=== PATIENT | female | born 1955 | race Caucasian/White ===

== ENCOUNTER 2017-05-18 09:13 | Emergency (ER) | payer OTHER ==
[2017-05-18 09:18] VITALS: BMI 24.5
--- NOTE | 2017-05-18 09:26 | PDOC ---
History of Present Illness - General History Source: Patient Exam Limitations: No Limitations - History of Present Illness Initial Comments: 05/18/17 11:34 The patient is a 62 year old female with a significant PMH of rheumatic fever who presents to the emergency department with left sided rib pain and non- productive cough since yesterday. The patient describes the rib pain as localized on the left, pressure-like, and non-radiating. The patient states the pain is worsened with breathing. The patient denies any similar left sided rib pain in the past. The patient denies any history of kidney stones. The patient denies chest pain, shortness of breath, headache and dizziness. Denies fever, chills, nausea, vomit, diarrhea and constipation. Denies dysuria, frequency, urgency and hematuria. Allergies: NKA Past surgical history: None reported. Social history: Current smoker. No reported alcohol or drug use. <Dang Mckeon - Last Filed: 05/18/17 11:34> <Allison Stuart - Last Filed: 05/18/17 16:12> - General Chief Complaint: Pain Stated Complaint: ABD PAIN Time Seen by Provider: 05/18/17 09:26 Past History <Dang Mckeon - Last Filed: 05/18/17 11:34> - Past Medical History COPD: No Psychiatric Problems: Yes (DEPRESSION, ANXEITY) - Suicide/Smoking/Psychosocial Hx Smoking History: Current every day smoker Have you smoked in the past 12 months: Yes Number of Cigarettes Smoked Daily: 20 Information on smoking cessation initiated: Yes 'Breaking Loose' booklet given: 05/18/17 Hx Alcohol Use: No Drug/Substance Use Hx: No Substance Use Type: None <Allison Stuart - Last Filed: 05/18/17 16:12> - Past Medical History Allergies/Adverse Reactions: Allergies Allergy/AdvReac Type Severity Reaction Status Date / Time No Known Allergies Allergy Verified 05/18/17 09:15 Home Medications: Ambulatory Orders Unobtainable [Unobtainable] 05/18/17 Review of Systems - Review of Systems Able to Perform ROS?: Yes Comments:: 05/18/17 11:35 GENERAL/CONSTITUTIONAL: No fever or chills. No weakness. HEAD, EYES, EARS, NOSE AND THROAT: No change in vision. No ear pain or discharge. No sore throat. CARDIOVASCULAR: No chest pain or shortness of breath. RESPIRATORY: (+) Non-productive cough. No wheezing or hemoptysis. GASTROINTESTINAL: No nausea, vomiting, diarrhea or constipation. GENITOURINARY: No dysuria, frequency, or change in urination. MUSCULOSKELETAL: (+) Left sided rib pain. No joint or muscle swelling or pain. No neck or back pain. SKIN: No rash NEUROLOGIC: No headache, vertigo, loss of consciousness, or change in strength/ sensation. ENDOCRINE: No increased thirst. No abnormal weight change. HEMATOLOGIC/LYMPHATIC: No anemia, easy bleeding, or history of blood clots. ALLERGIC/IMMUNOLOGIC: No hives or skin allergy. <Dang Mckeon - Last Filed: 05/18/17 11:34> *Physical Exam - Vital Signs Last Vital Signs Temp Pulse Resp BP Pulse Ox 97.6 F 86 18 137/87 93 L 05/18/17 09:15 05/18/17 09:15 05/18/17 09:15 05/18/17 09:15 05/18/17 09:15 - Physical Exam Comments: 05/18/17 11:35 GENERAL: Awake, alert, and fully oriented, in no acute distress HEAD: No signs of trauma EYES: PERRLA, EOMI, sclera anicteric, conjunctiva clear ENT: Auricles normal inspection, hearing grossly normal, nares patent, oropharynx clear without exudates. Moist mucosa NECK: Normal ROM, supple, no lymphadenopathy, JVD, or masses LUNGS: Breath sounds equal, clear to auscultation bilaterally. No wheezes, and no crackles HEART: Regular rate and rhythm, normal S1 and S2, no murmurs, rubs or gallops ABDOMEN: (+) Left sided rib Soft, nontender, normoactive bowel sounds. No guarding, no rebound. No masses BACK: No CVA tenderness. EXTREMITIES: Normal range of motion, no edema. No clubbing or cyanosis. No cords, erythema, or tenderness NEUROLOGICAL: Cranial nerves II through XII grossly intact. Normal speech, normal gait SKIN: Warm, Dry, normal turgor, no rashes or lesions noted. <Dang Mckeon - Last Filed: 05/18/17 11:34> - Vital Signs Last Vital Signs Temp Pulse Resp BP Pulse Ox 97.6 F 86 18 137/87 93 L 05/18/17 09:15 05/18/17 09:15 05/18/17 09:15 05/18/17 09:15 05/18/17 09:15 <Allison Stuart - Last Filed: 05/18/17 16:12> ED Treatment Course - LABORATORY CBC & Chemistry Diagram: 05/18/17 10:11 05/18/17 10:11 - ADDITIONAL ORDERS Additional order review: Laboratory Results 05/18/17 05/18/17 10:20 10:11 Sodium 138 Potassium 3.3 L Chloride 105 Carbon Dioxide 25 Anion Gap 8 BUN 12 Creatinine 0.7 Creat Clearance w eGFR > 60 Random Glucose 78 Calcium 8.6 Total Bilirubin 0.2 AST 30 ALT 31 Alkaline Phosphatase 63 Total Protein 7.2 Albumin 3.5 Urine Color Ltyellow Urine Appearance Clear Urine pH 6.0 Ur Specific [place] 1.011 Urine Protein Negative Urine Glucose (UA) Negative Urine Ketones Negative Urine Blood 1+ H Urine Nitrite Negative Urine Bilirubin Negative Urine Urobilinogen Negative Ur Leukocyte Esterase Negative 05/18/17 10:11 RBC 4.56 MCV 99.2 H MCHC 32.7 RDW 13.4 MPV 9.3 Neutrophils % 53.8 Lymphocytes % 32.9 Monocytes % 12.4 H Eosinophils % 0.4 Basophils % 0.5 - Medications Given in the ED: ED Medications Discontinued Medications Generic Name Dose Route Start Last Admin Trade Name Freq PRN Reason Stop Dose Admin Ketorolac Tromethamine 30 mg 05/18/17 10:04 05/18/17 10:21 Toradol Injection - IVPUSH 05/18/17 10:05 30 mg ONCE ONE Administration <Dang Mckeon - Last Filed: 05/18/17 11:34> - LABORATORY CBC & Chemistry Diagram: 05/18/17 10:11 05/18/17 10:11 <Allison Stuart - Last Filed: 05/18/17 16:12> Medical Decision Making - Medical Decision Making 05/18/17 10:39 Pt presents to the ED complaining of non productive cough and L sided rib pain. Denies fevers, vomiting or urinary complaints. No CVA or abdominal tenderness. Differential includes PNA, costochondritis, unlikely PE or ACS. Renal stone is also on the differential, although less likely given the location of her pain. Will check non contrast CT if UA shows hematuria. <Allison Stuart - Last Filed: 05/18/17 16:12> *DC/Admit/Observation/Transfer - Attestations Scribe Attestion: 05/18/17 11:35 Documentation prepared by Dang Mckeon, acting as director biomedical engineering for Allison Stuart MD. <Dang Mckeon - Last Filed: 05/18/17 11:34> - Discharge Dispostion Admit: No <Allison Stuart - Last Filed: 05/18/17 16:12> Diagnosis at time of Disposition: Back pain Qualifiers: Back pain location: thoracic back pain Chronicity: acute Back pain laterality: left Qualified Code(s): M54.6 - Pain in thoracic spine - Discharge Dispostion Disposition: HOME Condition at time of disposition: Good - Patient Instructions Printed Discharge Instructions: DI for Thoracic Back Pain Additional Instructions: return to the ED for fever, severe pain, pain with fever, other new or worsening symptoms. Make sure that you call your doctor for follow up on Saturday.
[2017-05-18] MEDS ORDERED: KETOROLAC TROMETHAMINE 30 MG/1 ML VIAL IVPUSH ONE (10:04)
[2017-05-18] MEDS ORDERED: KETOROLAC TROMETHAMINE 30 MG/1 ML VIAL ONE (10:10)
[2017-05-18 10:50] LABS: BASO % 0.5 % (0-2.0); EOS % 0.4 % (0-4.5); HEMATOCRIT 45.3 % (32.4-45.2); HEMOGLOBIN 14.8 GM/dL (10.7-15.3); LYMPH % 32.9 % (8-40); MCH 32.5 pg (25.7-33.7); MCHC 32.7 g/dl (32.0-36.0); MEAN CELL VOLUME 99.2 fl (80-96); MEAN PLT VOLUME 9.3 fl (7.5-11.1); MONO % 12.4 % (3.8-10.2); NEUT % 53.8 % (42.8-82.8); PLATELET COUNT 235 K/MM3 (134-434); RBC 4.56 M/mm3 (3.60-5.2); RDW 13.4 % (11.6-15.6); WHITE BLOOD COUNT 6.9 K/mm3 (4.0-10.0)
[2017-05-18 10:59] LABS: ALBUMIN 3.5 g/dl (3.4-5.0); ANION GAP 8 (8-16); BLOOD UREA NITROGEN 12 mg/dL (7-18); CALCIUM 8.6 mg/dL (8.5-10.1); CHLORIDE 105 mmol/L (98-107); CO2 25 mmol/L (21-32); CREATININE 0.7 mg/dL (0.55-1.02); GLUCOSE,RANDOM 78 mg/dL (74-106); POTASSIUM 3.3 mmol/L (3.5-5.1); SGOT/AST 30 U/L (15-37); SGPT/ALT 31 U/L (12-78); SODIUM 138 mmol/L (136-145)
[2017-05-18 11:01] LABS: URINE APPEARANCE CLEAR; URINE BILIRUBIN NEGATIVE (NEGATIVE); URINE BLOOD 1+ (NEGATIVE); URINE COLOR LTYELLOW; URINE GLUCOSE (UA) NEGATIVE (NEGATIVE); URINE KETONE NEGATIVE (NEGATIVE); URINE LEUK ESTERASE NEGATIVE (NEGATIVE); URINE NITRITE NEGATIVE (NEGATIVE); URINE PROTEIN NEGATIVE (NEGATIVE); URINE UROBILINOGEN NEGATIVE mg/dL (0.2-1.0)
[2017-05-18 11:01] LABS: ALK PHOS 63 U/L (45-117); BILIRUBIN,TOTAL 0.2 mg/dL (0.2-1.0); TOT PROT 7.2 g/dl (6.4-8.2)
[2017-05-18 11:36] LABS: EPI CELLS FEW /HPF (FEW); URINE BACTERIA RARE /hpf (NONE SEEN); URINE MUCUS RARE
[2017-05-18 16:22] VITALS: BP 107/67; PULSE 90; TEMP 98
== END 2017-05-18 16:22 | disposition home or self-care (01) ==
LOC: JER 09:13
PROC: 3E0333Z Introduction of Anti-inflammatory into Peripheral Vein, Percutaneous Approach (ICD-10-PCS; principal; 2017-05-18)
DX: M54.6 Pain in thoracic spine (principal)
CPT/HCPCS: 36415; 71046-TC; 74176-TC; 80053; 81003; 81015; 85025; 87086; 96374; 99282-25

== ENCOUNTER 2021-02-15 04:38 | Day surgery (SDC) | payer OTHER ==
[2021-02-14 12:04] VITALS: BMI 24.3
[2021-02-15] MEDS ORDERED: ALVIMOPAN 12 MG CAP PO ONE ×2 (07:00→07:24)
[2021-02-15] MEDS ORDERED: ERTAPENEM SODIUM 1 GM VIAL ONE (07:24)
[2021-02-15] MEDS ORDERED: ERTAPENEM SODIUM 1 GM in SODIUM CHLORIDE 50 ML IVPB ONE (08:00)
[2021-02-15] MEDS ORDERED: LIDOCAINE HCL 2% JELLY 10 ML CARTRIDGE ONE (09:56)
[2021-02-15] MEDS ORDERED: LIDOCAINE HCL 2% JELLY (5 ML/TUBE) ONE (09:56)
[2021-02-15] MEDS ORDERED: PROPOFOL 20 ML ONE (10:02)
[2021-02-15] MEDS ORDERED: MIDAZOLAM HCL 2 MG/2 ML SINGLE DOSE VIAL ONE (10:03)
[2021-02-15] MEDS ORDERED: BUPIVACAINE HCL/PF 0.5% (5MG/ML) 10 ML VIAL ONE (10:11)
[2021-02-15] MEDS ORDERED: ROCURONIUM BROMIDE 50 MG/5 ML SYRINGE ONE (10:54)
[2021-02-15] MEDS ORDERED: ERTAPENEM SODIUM 1 GM VIAL IVPB ONE (11:10)
[2021-02-15] MEDS ORDERED: NEOSTIGMINE METHYLSULFATE 0.5 MG/ML - 10 ML MDV ONE (12:11)
[2021-02-15] MEDS ORDERED: ONDANSETRON 4 MG/2 ML VIAL IVPUSH PRN (12:19)
[2021-02-15] MEDS ORDERED: oxyCODONE HCL 5 MG TABLET PO PRN ×2 (12:20)
[2021-02-15] MEDS ORDERED: LACTATED RINGERS SOLUTION 1,000 ML IV SCH (12:30)
[2021-02-15] MEDS ORDERED: ACETAMINOPHEN 1000 MG/100 ML VIAL IVPB ONE (12:45)
[2021-02-15] MEDS ORDERED: ONDANSETRON 4 MG/2 ML VIAL IVPUSH ONE (13:50)
[2021-02-15] MEDS ORDERED: ONDANSETRON 4 MG/2 ML VIAL ONE (13:50)
[2021-02-15] MEDS ORDERED: ACETAMINOPHEN 325 MG TABLET (FP) PO ONE (15:40)
[2021-02-15] MEDS ORDERED: ACETAMINOPHEN 325 MG TABLET (FP) ONE (15:43)
[2021-02-15 18:23] VITALS: BP 114/60; PULSE 64; TEMP 97.6
[2021-02-15] MEDS ORDERED: ACETAMINOPHEN 500 MG TABLET (FP) PO SCH (18:30)
[2021-02-15] MEDS ORDERED: oxyCODONE HCL 10 MG SUSTAINED ACTING TABLET PO SCH (22:00)
== END 2021-02-15 16:00 | disposition home or self-care (01) ==
LOC: JASU-SURG 04:38 → EDSTATUS 08:00 → JASU-SURG 16:00
PROVIDERS: ATTEND Surgery
PROC: 0DJD8ZZ Inspection of Lower Intestinal Tract, Via Natural or Artificial Opening Endoscopic (ICD-10-PCS; 2021-02-15)
PROC: 0DBP8ZX Excision of Rectum, Via Natural or Artificial Opening Endoscopic, Diagnostic (ICD-10-PCS; principal; 2021-02-15 09:00)
DX: K62.1 Rectal polyp (principal); Z85.048 Personal history of other malignant neoplasm of rectum, rectosigmoid junction, and anus; K62.89 Other specified diseases of anus and rectum; Z53.8 Procedure and treatment not carried out for other reasons
CPT/HCPCS: 86850; 86870; 86900; 86901; 86902; 94760

== ENCOUNTER 2021-02-22 04:31 | Inpatient (IN) | payer OTHER ==
[2021-02-20 16:07] VITALS: BMI 24.3
[2021-02-22] MEDS ORDERED: LIDOCAINE HCL/PF 2% SDV 5ML VIAL ONE (10:47)
[2021-02-22] MEDS ORDERED: PROPOFOL 20 ML ONE (10:48)
[2021-02-22] MEDS ORDERED: MIDAZOLAM HCL 2 MG/2 ML SINGLE DOSE VIAL ONE (10:48)
[2021-02-22] MEDS ORDERED: ROCURONIUM BROMIDE 100 MG/10 ML VIAL ONE (11:17)
[2021-02-22] MEDS ORDERED: NEOSTIGMINE METHYLSULFATE 0.5 MG/ML - 10 ML MDV ONE (12:44)
[2021-02-22] MEDS ORDERED: GLYCOPYRROLATE 0.2 MG/1 ML VIAL ONE (12:45)
[2021-02-22] MEDS ORDERED: ONDANSETRON 4 MG/2 ML VIAL IVPUSH PRN (13:02)
[2021-02-22] MEDS: LACTATED RINGERS SOLUTION 1,000 ML IV SCH (16:14)
[2021-02-22] MEDS ORDERED: ACETAMINOPHEN 1000 MG/100 ML VIAL IVPB PRN (16:33)
[2021-02-22] MEDS: CEFAZOLIN 2 GM in DEXTROSE 5%-WATER - 100 ML IVPB SCH (18:34)
[2021-02-22] MEDS ORDERED: FLU VACC QS2021-22(6MOS UP)/PF 60 MCG/0.5 ML SYRINGE IM ONE ×2 (19:41→20:00)
[2021-02-22] MEDS ORDERED: PNEUMOC 13-VAL CONJ-DIP CRM/PF 0.5 ML DISP.SYRIN IM ONE ×2 (19:42→20:00)
[2021-02-22] MEDS: oxyCODONE HCL 5 MG TABLET PO PRN (20:12)
[2021-02-23] MEDS: CEFAZOLIN 2 GM in DEXTROSE 5%-WATER - 100 ML IVPB SCH (02:18)
[2021-02-23] MEDS: LACTATED RINGERS SOLUTION 1,000 ML IV SCH ×2 (02:19→19:41)
[2021-02-23] MEDS: oxyCODONE HCL 5 MG TABLET PO PRN ×2 (02:25→11:24)
[2021-02-23] MEDS ORDERED: INSULIN (NOVOLOG MIX 70/30) 100 UNITS/ML MDV SQ ONE (07:01)
[2021-02-23 09:01] LABS: BASO % 0.4 % (0-2.0); EOS % 0.1 % (0-4.5); HEMATOCRIT 41.6 % (32.4-45.2); HEMOGLOBIN 14.3 GM/dL (10.7-15.3); LYMPH % 13.7 % (8-40); MCHC 34.5 g/dl (32.0-36.0); MEAN CELL VOLUME 101.6 fl (80-96); MEAN PLT VOLUME 9.2 fl (7.5-11.1); MONO % 5.4 % (3.8-10.2); NEUT % 80.4 % (42.8-82.8); PLATELET COUNT 236 10^3/uL (134-434); RBC 4.09 M/mm3 (3.60-5.2); RDW 13.9 % (11.6-15.6); WHITE BLOOD COUNT 12.4 K/mm3 (4.0-10.0)
[2021-02-23 09:41] LABS: ALBUMIN 2.9 g/dl (3.4-5.0)
[2021-02-23 09:42] LABS: CALCIUM 8.2 mg/dL (8.5-10.1)
[2021-02-23 09:43] LABS: MAGNESIUM 1.8 mg/dL (1.8-2.4)
[2021-02-23 09:45] LABS: CREATININE 0.7 mg/dL (0.55-1.3)
[2021-02-23 09:46] LABS: PHOSPHOROUS 2.6 mg/dL (2.5-4.9)
[2021-02-23 09:47] LABS: BILIRUBIN,TOTAL 0.5 mg/dL (0.2-1)
[2021-02-23] MEDS: ENOXAPARIN NA (PORCINE) 30 MG/0.3 ML DISP.SYRIN SQ SCH (10:17)
[2021-02-23 22:03] LABS: PH,URINE 7.5 (5.0-8.0); URINE APPEARANCE CLEAR; URINE BILIRUBIN NEGATIVE (NEGATIVE); URINE COLOR YELLOW; URINE GLUCOSE (UA) NEGATIVE (NEGATIVE); URINE KETONE 1+ (NEGATIVE); URINE LEUK ESTERASE NEGATIVE (NEGATIVE); URINE NITRITE NEGATIVE (NEGATIVE); URINE PROTEIN NEGATIVE (NEGATIVE); URINE UROBILINOGEN 0.2 mg/dL (0.2-1.0)
[2021-02-24] MEDS: LACTATED RINGERS SOLUTION 1,000 ML IV SCH (01:52)
[2021-02-24] MEDS: ENOXAPARIN NA (PORCINE) 30 MG/0.3 ML DISP.SYRIN SQ SCH (09:28)
[2021-02-24 10:04] VITALS: BP 126/77; PULSE 78; TEMP 97.9
== END 2021-02-24 14:43 | disposition home or self-care (01) | DRG 226 ==
LOC: JASUSAT 04:31 → JASU-SURG 04:31 → J6S 15:41 → JASUSAT 16:29
PROVIDERS: ADMIT Surgery; ATTEND Nurse Practitioner Family
PROC: 0DJD8ZZ Inspection of Lower Intestinal Tract, Via Natural or Artificial Opening Endoscopic (ICD-10-PCS; 2021-02-22)
PROC: 0DBQ8ZZ Excision of Anus, Via Natural or Artificial Opening Endoscopic (ICD-10-PCS; principal; 2021-02-22 11:30)
DX: C20 Malignant neoplasm of rectum (principal); R10.31 Right lower quadrant pain; K62.1 Rectal polyp
CPT/HCPCS: 36415; 74019-TC-FY; 80053; 81003; 83735; 84100; 85025; 90670; 90686; 94010; 94760; C9803; G0008; G0009; J0131; U0003; U0005

== ENCOUNTER 2021-03-17 17:54 | Emergency (ER) | payer OTHER ==
[2021-03-17 18:41] VITALS: BP 148/89; PULSE 76; TEMP 98; BMI 24.5
[2021-03-17] MEDS ORDERED: METHOCARBAMOL 500 MG TABLET PO ONE (19:22)
[2021-03-17] MEDS ORDERED: IBUPROFEN 600 MG TABLET (FP) PO ONE ×2 (19:22→19:29)
[2021-03-17] MEDS ORDERED: METHOCARBAMOL 500 MG TABLET ONE (19:29)
== END 2021-03-17 19:50 | disposition home or self-care (01) ==
LOC: JERFT 17:54
DX: M54.2 Cervicalgia (principal)
CPT/HCPCS: 72050-TC-FY; 99284-25

== ENCOUNTER 2024-02-26 11:27 | Day surgery (SDC) | payer OTHER ==
[2024-02-03 14:16] VITALS: BMI 22.6
[2024-02-26 11:59] VITALS: RESP 18
[2024-02-26 13:15] VITALS: TEMP 97.4
[2024-02-26 13:33] VITALS: BP 130/80; PULSE 72
== END 2024-02-26 13:32 | disposition home or self-care (01) ==
LOC: FASU-ENDO 11:27
PROVIDERS: ATTEND Internal Medicine Gastroenterology
PROC: 0DBP8ZX Excision of Rectum, Via Natural or Artificial Opening Endoscopic, Diagnostic (ICD-10-PCS; 2024-02-26)
PROC: 0DBM8ZX Excision of Descending Colon, Via Natural or Artificial Opening Endoscopic, Diagnostic (ICD-10-PCS; 2024-02-26)
PROC: 0DBH8ZX Excision of Cecum, Via Natural or Artificial Opening Endoscopic, Diagnostic (ICD-10-PCS; principal; 2024-02-26 12:44)
DX: Z12.11 Encounter for screening for malignant neoplasm of colon (principal); D12.0 Benign neoplasm of cecum; D12.4 Benign neoplasm of descending colon; D12.8 Benign neoplasm of rectum; K64.1 Second degree hemorrhoids; K64.8 Other hemorrhoids; Z85.048 Personal history of other malignant neoplasm of rectum, rectosigmoid junction, and anus
CPT/HCPCS: 88305-TC

== ENCOUNTER 2024-03-30 13:30 | Emergency (ER) | payer OTHER ==
[2024-03-30 13:53] VITALS: BP 119/79; PULSE 80; RESP 16; TEMP 98.1; BMI 22.6
== END 2024-03-30 15:34 | disposition home or self-care (01) ==
LOC: JER 13:30
DX: L73.9 Follicular disorder, unspecified (principal)
CPT/HCPCS: 99283-25

== ENCOUNTER 2024-11-04 15:08 | Emergency (ER) | payer OTHER ==
[2024-11-04 15:20] VITALS: BP 143/78; PULSE 100; RESP 18; TEMP 98.8; BMI 23.8
[2024-11-04] MEDS ORDERED: ACETAMINOPHEN INJECTION 100 ML ONE (16:10)
[2024-11-04] MEDS ORDERED: ALBUTEROL SO4 2.5/IPRATROPIUM 0.5 INH SOL 3 ML VIAL.NEB. NEB ONE (16:10)
[2024-11-04] MEDS ORDERED: methylPREDNISolone NA SUCC 125 MG/2 ML VIAL ONE (16:12)
[2024-11-04] MEDS: ACETAMINOPHEN 1000 MG/100 ML BAG IVPB ONE (16:40)
[2024-11-04] MEDS: ALBUTEROL SO4 2.5/IPRATROPIUM 0.5 INH SOL 3 ML VIAL.NEB. NEB SCH (16:41)
[2024-11-04] MEDS: methylPREDNISolone NA SUCC 125 MG/2 ML VIAL IVPUSH ONE (16:41)
[2024-11-04 16:47] LABS: ABSOLUTE IMMATURE GRANULOCYTES 0.04 x10^3/uL (0.0-0.031); BASOPHILS # 0.06 x10^3/uL (0.01-0.08); EOSINOPHIL % 1.0 % (0.7-5.8); EOSINOPHILS # 0.08 x10^3/uL (0.04-0.36); MCHC 32.9 g/dl (32.2-35.5); MEAN CELL VOLUME 105.9 fl (79.4-94.8); MEAN PLT VOLUME 10.5 fl (9.4-12.3); MONOCYTE # 0.61 x10^3/uL (0.24-0.86); MONOCYTE % 8.0 % (4.7-12.5); RDW 13.8 % (12.4-16.4)
[2024-11-04 16:48] LABS: BG HCT 51.0 % (32.4-45.2); VENOUS BASE EXCESS 0.9 mmol/L (-2-2); VENOUS O2 SATURATION 55.5 % (70-80); VENOUS PCO2 54.8 mmHg (38-52); VENOUS PH 7.33 (7.310-7.410)
[2024-11-04 17:09] LABS: CO2 28.0 mmol/L (21-32); GLUCOSE,RANDOM 106.0 mg/dL (74-106)
[2024-11-04 17:12] LABS: CREATININE 0.8 mg/dL (0.55-1.3); SGOT/AST 24.0 U/L (15-37); SGPT/ALT 22.0 U/L (13-61)
[2024-11-04 17:14] LABS: TOT PROT 7.4 g/dl (6.4-8.2)
[2024-11-04 17:15] LABS: ALK PHOS 110.0 U/L (45-117)
[2024-11-04 17:17] LABS: N-TERMINAL BNP 125.3 pg/ml (5-125)
[2024-11-04 17:58] LABS: URINE APPEARANCE CLEAR; URINE BILIRUBIN NEGATIVE (NEGATIVE); URINE COLOR YELLOW; URINE GLUCOSE (UA) NEGATIVE (NEGATIVE); URINE KETONE TRACE (NEGATIVE); URINE LEUK ESTERASE NEGATIVE (NEGATIVE); URINE NITRITE NEGATIVE (NEGATIVE); URINE PROTEIN TRACE (NEGATIVE); URINE UROBILINOGEN 0.2 mg/dL (0.2-1.0)
[2024-11-04 18:08] LABS: HCV DIAGNOSTIC IN-HOUSE W/RFLX NON-REACTIVE (NONREACTIVE); HIV INTERPRETATION NEGATIVE (NEGATIVE)
[2024-11-04] MEDS ORDERED: AZITHROMYCIN IVPB 500 MG/250 ML BAG IVPB ONE (18:12)
[2024-11-04] MEDS: AZITHROMYCIN IVPB 500 MG in DEXTROSE 5%-WATER - 250 ML IVPB ONE (18:23)
== END 2024-11-04 18:47 | disposition home or self-care (01) ==
LOC: JER 15:08
PROC: 3E03329 Introduction of Other Anti-infective into Peripheral Vein, Percutaneous Approach (ICD-10-PCS; principal; 2024-11-04)
PROC: 3E033NZ Introduction of Analgesics, Hypnotics, Sedatives into Peripheral Vein, Percutaneous Approach (ICD-10-PCS; 2024-11-04)
PROC: 3E033GC Introduction of Other Therapeutic Substance into Peripheral Vein, Percutaneous Approach (ICD-10-PCS; 2024-11-04)
PROC: 3E0F7GC Introduction of Other Therapeutic Substance into Respiratory Tract, Via Natural or Artificial Opening (ICD-10-PCS; 2024-11-04)
PROC: 3E0F7GC Introduction of Other Therapeutic Substance into Respiratory Tract, Via Natural or Artificial Opening (ICD-10-PCS; 2024-11-04)
DX: J44.1 Chronic obstructive pulmonary disease with (acute) exacerbation (principal); M54.6 Pain in thoracic spine; R06.02 Shortness of breath; M54.50 Low back pain, unspecified; R09.3 Abnormal sputum; R07.81 Pleurodynia
CPT/HCPCS: 36415; 71046-TC-FY; 80053; 81003; 82803; 83735; 83880; 84484; 85025; 86803; 87086; 87389; 87637-QW; 93005; 93010; 99285-25